=== PATIENT | male | born 1965 | race Caucasian/White ===

== ENCOUNTER 2023-05-27 08:20 | Outpatient (CLI) | payer OTHER, SELFPAY ==
[2023-05-27 15:10] LABS: Basophils Absolute Auto 0.1 K/mm3 (0.0-0.1); Basophils Percent Auto 1.5 % (0.2-1.2); Eosinophils Absolute Auto 0.2 K/mm3 (0-0.3); Eosinophils Percent Auto 2.7 % (0-4.4); Hemoglobin 16.8 g/dL (14.0-18.0); Immature Granulocyte Absolute 0.02 K/mm3 (0.00-0.031); Immature Granulocyte Percent A 0.3 % (0-0.5); Lymphocytes Absolute Auto 2.83 K/mm3 (0.9-3.2); Lymphocytes Percent Auto 38.6 % (18.3-44.2); Mean Corpuscular HGB Conc 32.3 g/dl (32-36); Mean Corpuscular Hemoglobin 28.1 pg (26-34); Mean Corpuscular Volume 87.1 fl (80-100); Mean Platelet Volume 10.8 fl (7.4-10.4); Monocytes Absolute Auto 0.7 K/mm3 (0.1-0.6); Monocytes Percent Auto 8.9 % (2.6-8.5); Neutrophils Absolute Auto 3.5 K/mm3 (1.3-6.7); Platelet Count Result 277 k/mm3 (150-375); Red Blood Count 5.97 M/mm3 (4.6-6.20); Red Cell Distribution Width 14.5 % (11.5-14.5); White Blood Count 7.3 K/mm3 (4.5-10.0)
[2023-05-27 15:33] LABS: Alanine Aminotransferase 23 U/L (6-50); Albumin Level 4.4 g/dL (3.5-5.1); Alkaline Phosphatase 47 U/L (38-126); Anion Gap 6 mmol/L (8-16); Aspartate Amino Transferase 53 U/L (17-59); Bilirubin,Total 0.7 mg/dL (0.2-1.3); Blood Urea Nitrogen 21 mg/dL (9-20); Calcium 9.8 mg/dL (8.4-10.2); Carbon Dioxide 25 mmol/L (22-30); Chloride 107 mmol/L (98-107); Cholesterol 238 mg/dL (0-200); Estimated Glomerular Filt Rate > 60; Glucose 83 mg/dL (65-110); HDL Direct 46 mg/dL; Potassium 4.1 mmol/L (3.4-5.0); Sodium 138 mmol/L (137-145); Triglycerides 156 mg/dL (<150)
[2023-05-27 15:37] LABS: D Dimer < 0.27 ug/mL (<0.48)
[2023-05-27 15:44] LABS: NT Pro B Type Natriuretic Pept < 20 pg/mL (19.9-100)
[2023-05-27 15:51] LABS: LDL Cholesterol Direct 154 mg/dL
[2023-05-27 16:06] LABS: Prostate Specific Antigen 0.7 ng/mL (< OR = 4.0)
[2023-05-27 16:11] LABS: Vitamin D 25 Hydroxy 56.1 ng/mL
[2023-05-27 18:48] LABS: Hemoglobin A1C 5.7 % (<5.7)
== END 2023-05-27 08:21 | disposition home or self-care (01) ==
LOC: ANHGOSHLAB 08:21
PROVIDERS: PCP Nurse Practitioner Family; Visit Provider Nurse Practitioner Family
DX: Z12.5 Encounter for screening for malignant neoplasm of prostate (principal); R07.9 Chest pain, unspecified; R73.03 Prediabetes; E78.5 Hyperlipidemia, unspecified; E53.8 Deficiency of other specified B group vitamins; E55.9 Vitamin D deficiency, unspecified; Z13.29 Encounter for screening for other suspected endocrine disorder; Z00.00 Encounter for general adult medical examination without abnormal findings
CPT/HCPCS: 36415; 80053; 80061; 82306; 82607; 83036; 83880; 84153; 84443; 85025; 85380; G0103

== ENCOUNTER 2023-06-14 09:45 | Outpatient (CLI) | payer OTHER, SELFPAY ==
--- NOTE | 2023-06-14 09:52 | ECHO_ITS ---
Patient Info Name: Minesh Carrington Age: 57 years : 1965 Gender: Male Ht: 68 in Wt: 180 lbs BSA: 2.00 m2 HR: 71 bpm BP: 142 / 91 mmHg Heart Rhythm: Sinus Rhythm Technical Quality: Good Exam Date: 06/14/2023 9:55 AM Exam Location: Echo Lab Patient Status: Outpatient Admit Date: 06/14/2023 Staff Ordering Physician: Chantel Wharton APRN Dance Professor: Radha Quintana RDCS Attending Provider: Chantel Wharton APRN Referring Physician: Akiko WORLEY; Exam Type: CA echo doppler color flow Study Info Indications R06.02 - Shortness of breath Complete two-dimensional, color flow and Doppler transthoracic echocardiogram is performed. Summary 1. Complete two-dimensional, color flow and Doppler transthoracic echocardiogram is performed. 2. Left ventricular chamber dimension is normal. 3. Left ventricular systolic function is normal, estimated at 60-65%. 4. The left ventricular diastolic function is normal. 5. E/e' 8 is minimally elevated. 6. There is mild aortic valve sclerosis. 7. There is trace mitral valve regurgitation. 8. There is trace tricuspid valve regurgitation. 9. No pulmonary hypertension, estimated pulmonary arterial systolic pressure is 28 mmHg. Left Ventricle E/e' 8 is minimally elevated. Left ventricular chamber dimension is normal. Left ventricular systolic function is normal, estimated at 60-65%. The left ventricular diastolic function is normal. Right Ventricle Right ventricular systolic function is normal and with normal TAPSE 2.1 cm. Right ventricular chamber dimension is normal. Left Atria Left atrial chamber dimension is normal. Right Atria Right atrial chamber dimension is normal. Aortic Valve The aortic valve is trileaflet. There is mild aortic valve sclerosis. There is no aortic valve stenosis. There is no aortic valve regurgitation. Pulmonic Valve There is no pulmonic regurgitation. Mitral Valve There is no mitral valve stenosis. There is trace mitral valve regurgitation. Tricuspid Valve There is trace tricuspid valve regurgitation. No pulmonary hypertension, estimated pulmonary arterial systolic pressure is 28 mmHg. Pericardium/Pleural There is no pericardial effusion. Inferior Vena Cava Normal inferior vena cava with >50% collapse upon inspiration consistent with normal right atrial pressure, 5 mmHg. Aorta The aortic root size at the sinus of Valsalva is normal. Left Ventricular Outflow Tract Name Value Normal LVOT 2D LVOT Diameter 2.0 cm LVOT Doppler LVOT Peak Gradient 4 mmHg LVOT Mean Gradient 2 mmHg LVOT VTI 20 cm LVOT VTI/AV VTI Ratio 0.8 LVOT Stroke Volume 63 ml LVOT CO 3.3 l/min LVOT CI 1.6 l/min/m2 Pulmonic Valve Name Value Normal RVOT Doppler RVOT Peak Gradient
== END 2023-06-14 09:46 | disposition home or self-care (01) ==
PROVIDERS: PCP Nurse Practitioner Family; Visit Provider Nurse Practitioner Family
DX: R93.1 Abnormal findings on diagnostic imaging of heart and coronary circulation (principal); R07.9 Chest pain, unspecified; R06.02 Shortness of breath; I35.8 Other nonrheumatic aortic valve disorders; I34.0 Nonrheumatic mitral (valve) insufficiency; I07.1 Rheumatic tricuspid insufficiency
CPT/HCPCS: 93306

== ENCOUNTER 2023-07-20 08:17 | Outpatient (CLI) | payer OTHER, SELFPAY ==
--- NOTE | 2023-07-20 08:25 | EST_ITS ---
Patient Info Name: Minesh Carrington Age: 57 years : 1965 Gender: Male Ht: 68 in Wt: 175 lbs BSA: 1.97 m2 HR: 69 bpm BP: 135 / 92 mmHg Heart Rhythm: Sinus Rhythm Exam Date: 07/20/2023 8:40 AM Exam Location: Echo Lab Patient Status: Outpatient Admit Date: 07/20/2023 Staff Ordering Physician: Jose A Crawley DO Attending Provider: Jose A Crawley DO Exercise Technologist: Jenniffer Marvin CT Exercise Physician: Jose A Crawley DO Exam Type: CA stress test treadmill Study Info Indications R07.9 - Chest pain, unspecified A treadmill exercise stress test was performed. Summary 1. 1. Negative Perez exercise stress test for ischemic ST changes by ECG criteria. 2. 2. Good functional capacity, achieving 12 METs of workload. 3. 3. Appropriate HR response to exercise. 4. 4. Appropriate HR recovery at 1 minute post exercise. 5. 5. No imaging with stress testing. 6. 6. Patient informed of the above results. Protocol: Perez Stress ECG Details Stage: REST Duration (min): 1 min : 9 sec Speed (mph): 0.0 Grade (%): 0 HR (bpm): 70 SBP (mmHg): 135 DBP (mmHg): 92 METS: --- Stage: REST Duration (min): 5 min : 2 sec Speed (mph): 0.0 Grade (%): 0 HR (bpm): 73 SBP (mmHg): 135 DBP (mmHg): 92 METS: --- Stage: STAGE 1 Duration (min): 1 min : 0 sec Speed (mph): 1.7 Grade (%): 10 HR (bpm): 84 SBP (mmHg): 135 DBP (mmHg): 92 METS: --- Stage: STAGE 1 Duration (min): 2 min : 0 sec Speed (mph): 1.7 Grade (%): 10 HR (bpm): 86 SBP (mmHg): 135 DBP (mmHg): 92 METS: --- Stage: STAGE 1 Duration (min): 3 min : 0 sec Speed (mph): 1.7 Grade (%): 10 HR (bpm): 86 SBP (mmHg): 166 DBP (mmHg): 82 METS: --- Stage: STAGE 2 Duration (min): 1 min : 0 sec Speed (mph): 2.5 Grade (%): 12 HR (bpm): 89 SBP (mmHg): 166 DBP (mmHg): 82 METS: --- Stage: STAGE 2 Duration (min): 2 min : 0 sec Speed (mph): 2.5 Grade (%): 12 HR (bpm): 93 SBP (mmHg): 177 DBP (mmHg): 84 METS: --- Stage: STAGE 2 Duration (min): 3 min : 0 sec Speed (mph): 2.5 Grade (%): 12 HR (bpm): 99 SBP (mmHg): 177 DBP (mmHg): 84 METS: --- Stage: STAGE 3 Duration (min): 1 min : 0 sec Speed (mph): 3.4 Grade (%): 14 HR (bpm): 106 SBP (mmHg): 189 DBP (mmHg): 93 METS: --- Stage: STAGE 3 Duration (min): 2 min : 0 sec Speed (mph): 3.4 Grade (%): 14 HR (bpm): 115 SBP (mmHg): 189 DBP (mmHg): 93 METS: --- Stage: STAGE 3 Duration (min): 3 min : 0 sec Speed (mph): 3.4 Grade (%): 14 HR (bpm): 121 SBP (mmHg): 189 DBP (mmHg): 93 METS: --- Stage: STAGE 4 Duration (min): 1 min : 0 sec Speed (mph): 4.2 Grade (%): 16 HR (bpm): 135 SBP (mmHg): 206 DBP (mmHg): 87 METS: --- Stage: STAGE 4 Duration (min): 1 min : 4 sec Speed (mph): 4.2 Grade (%): 16 HR (bpm): 137 SBP (mmHg): 206 DBP (mmHg): 87 METS: ---
== END 2023-07-20 08:18 | disposition home or self-care (01) ==
LOC: ANHCARD 08:20
PROVIDERS: PCP Nurse Practitioner Family; Visit Provider Internal Medicine Cardiovascular Disease
DX: R07.9 Chest pain, unspecified (principal)
CPT/HCPCS: 93017

== ENCOUNTER 2024-03-20 08:58 | Outpatient (CLI) | payer OTHER, SELFPAY ==
[2024-03-20 14:02] LABS: Alanine Aminotransferase 19 U/L (6-50); Albumin Level 4.3 g/dL (3.5-5.1); Alkaline Phosphatase 46 U/L (38-126); Anion Gap 9 mmol/L (4-12); Aspartate Amino Transferase 31 U/L (17-59); Bilirubin,Total 0.5 mg/dL (0.2-1.3); Blood Urea Nitrogen 23 mg/dL (9-20); Calcium 9.5 mg/dL (8.4-10.2); Carbon Dioxide 27 mmol/L (22-30); Chloride 102 mmol/L (98-107); Estimated Glomerular Filt Rate > 60; Glucose 81 mg/dL (65-110); Potassium 4.7 mmol/L (3.4-5.0); Sodium 138 mmol/L (137-145)
== END 2024-03-20 08:59 | disposition home or self-care (01) ==
LOC: ANHGOSHLAB 09:00
PROVIDERS: PCP Family Medicine; Visit Provider Nurse Practitioner Family
DX: R35.0 Frequency of micturition (principal); R10.2 Pelvic and perineal pain
CPT/HCPCS: 36415; 80053

== ENCOUNTER 2024-03-22 08:33 | Outpatient (CLI) | payer OTHER, SELFPAY ==
--- NOTE | ~2024-03-22 | CT_ITS ---
EXAMINATION: CT abdomen pelvis wo con DATE: 03/22/2024 08:54 INDICATION: Pelvic and perineal pain. TECHNIQUE: Computed tomography (CT) of the abdomen and pelvis was performed without intravenous contr ast. Automated exposure control and iterative reconstruction technique were employed. The dose-length product was 607.65 mGy-cm. COMPARISON: 03/08/2019 FINDINGS: Discoid atelectasis at the lingula. Heart size is normal. No pericardial or pleural effusion. Liver, gallbladder, pancreas, bilateral adrenal glands and right kidney are normal. Parapelvic cysts in the left kidney. Single splenic calcification consistent with old granulomatous disease. Moderate diverti culosis with sigmoid and distal descending colon predominance. There is some inflammatory stranding a t the mid sigmoid colon which is adjacent to both a few diverticula as well as surrounding a an ovoid macroscopic fat attenuation sigmoid epiploic appendage and this remains equivocal for epiploic appen dagitis versus diverticulitis. Slightly favor the former. Small bowel and appendix are normal. Bladde r is normal. Prostatomegaly measuring 4.5 x 3.8 cm. No abscess or free intraperitoneal gas or fluid. No pathologically enlarged abdominal or pelvic lymphadenopathy. Mild lumbar levocurvature with mild s pondylosis. Chronic mild T11 compression fracture. IMPRESSION: 1. Mild inflammatory stranding along the sigmoid colon equivocal for epiploic appendagitis versus div erticulitis. Reviewed, dictated and finalized at location B. ENGINEER IMPRESSION: 1. Mild inflammatory stranding along the sigmoid colon equivocal for epiploic a ppendagitis versus diverticulitis.
== END 2024-03-22 08:34 | disposition home or self-care (01) ==
PROVIDERS: PCP Family Medicine; Visit Provider Nurse Practitioner Family
DX: K57.32 Diverticulitis of large intestine without perforation or abscess without bleeding (principal)
CPT/HCPCS: 74176

== ENCOUNTER 2024-03-27 12:38 | Outpatient (CLI) | payer OTHER, SELFPAY ==
--- NOTE | ~2024-03-27 | US_ITS ---
EXAMINATION: US scrotum doppler DATE: 03/27/2024 13:11 INDICATION: Right testicular pain. TECHNIQUE: Grayscale and Doppler ultrasound images of the testes were obtained. COMPARISON: None. FINDINGS: The right testis measures 4.2 x 2.2 x 2.9 cm. The left testis measures 4.1 x 2.2 x 2.9 cm. There is normal vascular flow to both testes. The right epididymis is normal with normal vascular deo w. The left epididymis is normal with normal vascular flow. There is no hydrocele. There are bilatera l varicoceles. IMPRESSION: 1. Bilateral varicoceles. Reviewed, dictated and finalized at location B. OW REPAIRER IMPRESSION: 1. Bilateral varicoceles.
== END 2024-03-27 12:39 | disposition home or self-care (01) ==
LOC: MICIMG 12:39
PROVIDERS: PCP Family Medicine; Visit Provider Nurse Practitioner Family
DX: I86.1 Scrotal varices (principal)
CPT/HCPCS: 76870; 93976

== ENCOUNTER 2024-04-30 07:45 | Day surgery (SDC) | payer OTHER, SELFPAY ==
[2024-04-11 10:46] VITALS: BMI 29.6
[2024-04-12 09:37] VITALS: BMI 27.6
--- NOTE | 2024-04-30 06:57 | P.PNAN_ITS ---
Anes - Initial Pre Proc Eval Procedure: Operation Date: 04/30/24 10:00 Proposed Procedures p Screening Colonoscopy - Girish Newton MD Date/Time: 04/30/24 06:57 Surgeon: Girish Newton MD Pre Op Diagnosis: Neoplasm Screening Patient Data Age: 58 Gender: M Height: 1.7 m Weight: 80 kg Allergies Allergy/AdvReac Type Severity Reaction Status Date / Time Penicillins Allergy Unknown Unknown Verified 04/30/24 08:43 Home Medications ?Medication ?Instructions ?Recorded ?Confirmed ?Type aspirin 81 mg tablet,delayed 81 mg PO DAILY 05/27/23 04/30/24 History release (Adult Aspirin Regimen) omega 8-khi-zvy-fish oil 60 mg-90 1 cap PO DAILY 05/27/23 04/30/24 History mg-500 mg capsule (Fish Oil) Bacillus coagulans 10 billion cell cell PO .qd 03/19/24 03/19/24 History capsule,delayed release (Probiotic (B. coagulans)) vitamin E (dl, acetate) 180 mg 180 mg PO DAILY 03/19/24 04/30/24 History (400 unit) capsule vitamin K2 100 mcg capsule 100 mcg PO DAILY 03/19/24 04/30/24 History tamsulosin 0.4 mg capsule 0.4 mg PO DAILY #90 caps 04/13/24 Rx Patient hx anesthesia problems: none Family hx anesthesia problems: none Results Review: All pre-operative results and documents have been reviewed as part of the pre- operative evaluation. [facility] Past Medical History Medical History Chest pain Arthritis Surgical History Surgical History Hx of colonoscopy (~2014) age 48's Hx of shoulder surgery (~2017) History of bilateral knee replacement (~02/2019) Family History Family History Father Diabetes mellitus Family history of gout Hernia Mother Dementia Grandparent No problems noted. Social History Social History Smoking packs per day: 1 Smoking cigarettes per day: 20.0 Years smoked: 25 Smoking pack-years: 25.00 Smoking status: Former smoker Tobacco type: cigarettes Smoking end date: 03/07/04 Alcohol intake: current Drinks per week: 6 Alcohol use details: BEER ON WEEKENDS Substance use: never Substance use type: does not use Do You Feel Safe in your Home?: Yes Lack of Transportation: No Lack of Food: Never True Current Housing: I Have Housing Concerned About Future Housing: No Difficulty Paying Gas/Electric Bills: No Difficulty Paying for Meds: No Currently Unemployed: No Education: High School Diploma/GED Difficulty w/ Childcare or Family Care: No Living arrangements: with family Occupation/Education: occupation Gender identity (if verbalized by the patient): Male Spiritual care concerns: No Agree to blood products: Yes Anes - Eval Final PreProcedure Day of Procedure 04/30/24 06:57 Patient weight: overweight Heart: regular rate and rhythm Lungs: clear to auscultation Airway: Mallampati scale class II Neurological: alert and oriented Last oral intake: >/= 8 hours ASA classification: II Emergent: no Anesthetic plan: proceed Anesthesia type and monitoring: general GIVS and standard monitoring Results Review: All pre-operative results and documents have been reviewed as part of the pre- operative evaluation. Informed Consent: The patient's anesthetic plan and its attendant risks and benefits were discussed with the patient/family/POA. Questions were solicited and answers provided to the satisfaction of the patient/family/POA.
--- OUTSIDE RECORDS SUMMARY | 2024-04-30 08:35 | XMS_ITS | Clinical Summary ---
Author Organization [facility] Address [address] [place] [address] Phone Care Team Providers Care Diamond Driller Helper Name Role Phone Clive Dhaliwal MD Primary Care Provider [phone]- [phone] Allergies Active Allergy Reactions Criticality Noted Date Comments Penicillins Unknown 11/30/2017 Medications clindamycin (CLEOCIN) 300 mg capsuleIndicati ons:Prophylaxis , Surgical Take 1 capsule (300 mg total) by mouth as directed. TAKE 2 PILLS 1 HOUR BEFORE DENTAL APPOINTMENT. 6 capsule 11/30/2017 Active Active Problems No known active problems Surgical History Surgery Date Site/Laterality Comments KNEE SURGERY Medical History Medical History Date Comments No known problems Family History Medical History Relation Name Comments Diabetes Father Family history of diabetes mellitus - (Added by TW Conv) Gout Father Family history of gout - (Added by TW Conv) Mental illness Mother Family histor y of mental disorder - (Added by TW Conv) Relation Name Status Comments Father Mother Social History Tobacco Use Types Packs/Day Years Used Date Smoking Tobacco: Former Smokeless Tobacco: Never Alcohol Use Standard Drinks/Week Comments Yes 0 (1 standard drink = 0.6 oz pur e alcohol) Personal Safety Answer Date Recorded Getting School Help Needed Not on file 05/20 Sex and Gender Information Value Date Recorded Sex Assigned at Not on file Legal 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 Gender Identity Not on file Sexual Orientation Not on file Obstetrics History Last Filed Vital Signs Vital Sign Reading Time Taken Comments Blood Pressure 120/80 04/24/2018 1:39 PM SENIOR SQL DEVELOPER Pulse 72 03/03/2017 8:52 AM SENIOR SQL DEVELOPER Temperature - - Respiratory Rate - - Oxygen Saturation 97% 03/03/2017 8:52 AM SENIOR SQL DEVELOPER Inhaled Oxygen Concentration - - Weight 79.4 kg (175 lb) 04/24/2018 1:45 PM SENIOR SQL DEVELOPER Height 172.7 cm (5' 8 ) 04/24/2018 1:45 PM SENIOR SQL DEVELOPER Body Mass Index 26.61 04/24/2018 1:45 PM SENIOR SQL DEVELOPER Plan of Treatment Not on file [facility] Care Teams Diamond Driller Helper Relationship Specialty Start Date End Date Clive Dhaliwal MD [address] [place], [place] [id number] PCP - General 04/11/17
--- OUTSIDE RECORDS SUMMARY | 2024-04-30 08:35 | XMS_ITS | Referral Summary ---
Author Organization [facility] Address [address] [place] [address] Phone Care Team Providers Care Professional Model Name Role Phone Clive Dhaliwal MD Primary Care Provider +1- [phone] Allergies Active Allergy Reactions Criticality Noted Date Comments Penicillins Unknown 11/30/2017 Medications clindamycin (CLEOCIN) 300 mg capsuleIndicati ons:Prophylaxis , Surgical Take 1 capsule (300 mg total) by mouth as directed. TAKE 2 PILLS 1 HOUR BEFORE DENTAL APPOINTMENT. 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 Gender Identity Not on file Sexual Orientation Not on file Last Filed Vital Signs Vital Sign Reading Time Taken Comments Blood Pressure 120/80 04/24/2018 1:39 PM AIR AND HYDRONIC BALANCING TECHNICIAN Pulse 72 03/03/2017 8:52 AM AIR AND HYDRONIC BALANCING TECHNICIAN Temperature - - Respiratory Rate - - Oxygen Saturation 97% 03/03/2017 8:52 AM AIR AND HYDRONIC BALANCING TECHNICIAN Inhaled Oxygen Concentration - - Weight 79.4 kg (175 lb) 04/24/2018 1:45 PM AIR AND HYDRONIC BALANCING TECHNICIAN Height 172.7 cm (5' 8 ) 04/24/2018 1:45 PM AIR AND HYDRONIC BALANCING TECHNICIAN Body Mass Index 26.61 04/24/2018 1:45 PM AIR AND HYDRONIC BALANCING TECHNICIAN Plan of Treatment Not on file Insurance ANTHEM ACCESS ANTHEM ACCESS Member Subscriber [facility] / [facility] Name:RASHEEDA CARRINGTON Relation to Subscriber:Self Name:Rasheeda Carrington Payer ID:[id number] (NAIC) Type:AutoESL Address: [place] [address] Care Teams Professional Model Relationship Specialty Start Date End Date Clive Dhaliwal MD [address] [place] [address] PCP - General 04/11/17
[2024-04-30 08:45] VITALS: BP 126/90; PULSE 74; RESP 14; TEMP 37.2; O2SAT 96; BMI 27.6
[2024-04-30] MEDS: LACTATED RINGERS 1,000 ML 150 ML IV CONT (09:08)
--- NOTE | 2024-04-30 10:33 | PM.IMHP ---
H&P: HPI History of Present Illness Date/Time: 04/30/24 10:33 Chief Complaint: Screening colonoscopy Narrative: This is the patient's 2nd colonoscopy. There are no GI symptoms and there is no family history of colorectal cancer. Review of Systems Review of Systems: All systems reviewed & are unremarkable except as noted in HPI and below PMFSH Past Medical History Medical History Chest pain Arthritis Surgical History Surgical History Hx of colonoscopy (~2014) age 48's Hx of shoulder surgery (~2017) History of bilateral knee replacement (~02/2019) Family History Family History Father Diabetes mellitus Family history of gout Hernia Mother Dementia Grandparent No problems noted. Social History Social History Smoking packs per day: 1 Smoking cigarettes per day: 20.0 Years smoked: 25 Smoking pack-years: 25.00 Smoking status: Former smoker Tobacco type: cigarettes Smoking end date: 03/07/04 Alcohol intake: current Drinks per week: 6 Alcohol use details: BEER ON WEEKENDS Substance use: never Substance use type: does not use Do You Feel Safe in your Home?: Yes Lack of Transportation: No Lack of Food: Never True Current Housing: I Have Housing Concerned About Future Housing: No Difficulty Paying Gas/Electric Bills: No Difficulty Paying for Meds: No Currently Unemployed: No Education: High School Diploma/GED Difficulty w/ Childcare or Family Care: No Living arrangements: with family Occupation/Education: occupation Gender identity (if verbalized by the patient): Male Spiritual care concerns: No Agree to blood products: Yes Meds Home Medications and Allergies Home Medications ?Medication ?Instructions ?Recorded ?Confirmed ?Type aspirin 81 mg tablet,delayed 81 mg PO DAILY 05/27/23 04/30/24 History release (Adult Aspirin Regimen) omega 9-cwz-jcx-fish oil 60 mg-90 1 cap PO DAILY 05/27/23 04/30/24 History mg-500 mg capsule (Fish Oil) Bacillus coagulans 10 billion cell cell PO .qd 03/19/24 03/19/24 History capsule,delayed release (Probiotic (B. coagulans)) vitamin E (dl, acetate) 180 mg 180 mg PO DAILY 03/19/24 04/30/24 History (400 unit) capsule vitamin K2 100 mcg capsule 100 mcg PO DAILY 03/19/24 04/30/24 History tamsulosin 0.4 mg capsule 0.4 mg PO DAILY #90 caps 04/13/24 Rx Allergies Allergy/AdvReac Type Severity Reaction Status Date / Time Penicillins Allergy Unknown Unknown Verified 04/30/24 08:43 Vital Signs Vital Signs - 24 hr 04/30/24 08:45 Temperature 99 F Pulse Rate 74 Respiratory Rate 14 Blood Pressure 126/90 Pulse Oximetry 96 Oxygen Delivery Room Air Exam Const: General: cooperative and healthy appearing Resp: Effort & Inspection: normal respiratory effort and able to speak in complete sentences Auscultation: clear to auscultation bilaterally Cardio: Rate: regular rate Rhythm: regular rhythm GI: Inspection: normal to inspection GI Palp: No No hepatosplenomegaly present Auscultation: normal bowel sounds Rectal Exam: deferred Skin: General skin exam: normal color Psych: Appearance: grossly normal Mental Status: mental status grossly normal Assessment and Plan Assessment and plan (1) Encounter for screening colonoscopy: Code(s): Z12.11 - Encounter for screening for malignant neoplasm of colon Status: Acute Assessment and Plan: The patient is deemed a good candidate for the procedure. Consent signed. Will proceed.
[2024-04-30 10:59] VITALS: BP 108/67; PULSE 64; RESP 16; O2SAT 91
[2024-04-30 11:09] VITALS: BP 102/73; PULSE 63; RESP 16; O2SAT 97
[2024-04-30 11:19] VITALS: BP 110/73; PULSE 61; RESP 16; O2SAT 97
--- NOTE | 2024-04-30 11:34 | WPDANESPN ---
Anes - Prog Note Post-Op Date/Time: 04/30/24 11:34 Cardiovascular status: normal Respiratory status: normal Airway patency: baseline Mental status: baseline Post-Op hydration status: normal Vital Signs: Last Vital Signs Temp 37.2 C 04/30/24 08:45 Pulse 61 04/30/24 11:19 Resp 16 04/30/24 11:19 BP 110/73 04/30/24 11:19 Pulse Ox 97 04/30/24 11:19 O2 Del Method Room Air 04/30/24 11:19 Pain Score (VAS): 0 I/O: Intake & Output 04/29/24 04/30/24 04/30/24 23:59 07:59 15:59 Intake Total 500 Balance 500 Post-procedural complaints: none Patient Feedback: Patient satisfied with anesthetic care. Other Findings: Patient vital signs back to baseline. Patient denies nausea and vomiting. Patient's pain under control. Patient OK for discharge.
== END 2024-04-30 11:38 | disposition home or self-care (01) ==
PROVIDERS: PCP Family Medicine; Visit Provider Internal Medicine Gastroenterology
PROC: 0DJD8ZZ Inspection of Lower Intestinal Tract, Via Natural or Artificial Opening Endoscopic (ICD-10-PCS; CPT 45378; principal; 2024-04-30 10:00)
DX: Z12.11 Encounter for screening for malignant neoplasm of colon (principal); K57.30 Diverticulosis of large intestine without perforation or abscess without bleeding
CPT/HCPCS: 45378